=== PATIENT | male | born 2005 | race Two or more races ===

== ENCOUNTER 2024-12-05 14:35 | Emergency (ER) | payer OTHER ==
[~2024-12-05] VITALS: Ht 177.8 cm; Wt 65.8 kg
[2024-12-05] MEDS ORDERED: CEFTRIAXONE SODIUM 1,000 MG VIAL IV ONE (16:30)
[2024-12-05] MEDS ORDERED: TETANUS & DIPHTHERIA TOX,ADULT 0.5 ML VIAL IM ONE (16:30)
[2024-12-05] MEDS ORDERED: KETOROLAC TROMETHAMINE 60 MG VIAL IM ONE ×2 (16:30→17:11)
[2024-12-05] MEDS ORDERED: LIDOCAINE HCL 1% 10ML VIAL PERCUT ONE (16:30)
[2024-12-05] MEDS ORDERED: LIDOCAINE HCL 1% 10ML VIAL ONE ×2 (17:11→18:02)
[2024-12-05] MEDS ORDERED: CEFTRIAXONE SODIUM 1,000 MG VIAL ONE (17:11)
[2024-12-05] MEDS ORDERED: TETANUS DIPHTHERIA TOX. ADSOR 5 ML VIAL IM ONE (17:12)
[2024-12-05] MEDS ORDERED: CEPHALEXIN750 MG PO (19:17)
[2024-12-05] MEDS ORDERED: PEPCID AC20 MG PO (19:17)
== END 2024-12-05 19:18 | disposition home or self-care (01) ==
LOC: ER 14:38
DX: S81.022A Laceration with foreign body, left knee, initial encounter (principal); W25.XXXA Contact with sharp glass, initial encounter; Y93.89 Activity, other specified; Y92.838 Other recreation area as the place of occurrence of the external cause; Y99.9 Unspecified external cause status